=== PATIENT | female | born 1945 | race Caucasian/White ===

== ENCOUNTER 2019-04-25 16:50 | Emergency (ER) | payer OTHER ==
[~2019-04-25] VITALS: Ht 172.7 cm; Wt 115.7 kg
[2019-04-25 17:26] LABS: Basophils # (auto) 0 uL; Basophils % (auto) 0.4 % (0.0-2.0); Eosinophils # (auto) 0.1 uL; Eosinophils % (auto) 0.9 % (0.0-7.0); Hematocrit 39.4 % (36.0-46.0); Hemoglobin 13.3 g/dL (12.2-16.2); Lymphocytes # (auto) 4.9 uL; Mean Corpuscular Hemoglobin 32.9 pg (28.0-32.0); Mean Corpuscular Hgb Conc. 33.8 g/dL (32.0-36.0); Mean Corpuscular Volume 97.5 fL (80.0-100.0); Monocytes # (auto) 0.3 uL; Monocytes % (auto) 3.5 % (0.0-12.0); Neutrophils # (auto) 4.4 uL; Neutrophils % (auto) 45.2 % (37.0-80.0); Nucleated Red Blood Cells % 0.3 %; Platelet Count (auto) 134 10^3/uL (140-450); Red Blood Cells 4.04 10^6/uL (4.0-5.20); Red Cell Distribution Width 13.2 % (11.8-14.3); White Blood Cell 9.8 10^3/uL (4.4-10.8)
[2019-04-25 17:45] LABS: Alanine Aminotransferase 20 U/L (13-56); Albumin 3.8 g/dL (3.4-5.0); Anion Gap 7 (5-15); Blood Urea Nitrogen 24 mg/dL (7-18); Carbon Dioxide 24 mmol/L (21-32); Chloride 108 mmol/L (98-107); Glucose 193 mg/dL (74-106); Magnesium 2.1 mg/dL (1.6-2.6); Potassium 4.5 mmol/L (3.5-5.1); Sodium 139 mmol/L (136-145)
[2019-04-25 18:01] LABS: Calcium 9.9 mg/dL (8.5-10.1)
[2019-04-25 18:06] LABS: Alkaline Phosphatase 67 U/L (45-117); Aspartate Aminotransferase 13 U/L (15-37); BUN/Creatinine Ratio 22.9; GFR African American 66 mL/min; GFR Non-African American 55 mL/min
[2019-04-25 18:07] LABS: Bilirubin, Total 0.3 mg/dL (0.2-1.0); Total Protein 7.5 g/dL (6.4-8.2)
[2019-04-25] MEDS ORDERED: methylPREDNISolone SOD SUCC 125 MG/2 ML VL IV ONE (21:00)
[2019-04-25] MEDS ORDERED: IPRATROPIUM BROM 0.5 MG/2.5ML INH SOL HHN ONE (21:00)
[2019-04-25] MEDS ORDERED: ALBUTEROL SULF 2.5 MG/0.5ML(0.5%) NEB SOLN HHN ONE (21:00)
[2019-04-25 22:45] LABS: Urine Bacteria NONE SEEN /hpf (None Seen); Urine Blood Negative /uL (Negative); Urine Specific Gravity 1.015 (1.001-1.035); Urine WBC <1 /hpf (0 - 5)
[2019-04-26 00:15] VITALS: BP 143/73
== END 2019-04-26 00:20 | disposition short-term general hospital (02) ==
LOC: ER 16:50
DX: J44.9 Chronic obstructive pulmonary disease, unspecified (principal); E11.9 Type 2 diabetes mellitus without complications; E78.5 Hyperlipidemia, unspecified; I10 Essential (primary) hypertension; F17.210 Nicotine dependence, cigarettes, uncomplicated; Z98.51 Tubal ligation status
CPT/HCPCS: 36415; 71045; 80053; 81001; 82962; 83605; 83735; 83880; 84484; 85025; 87040; 93005; 94640; 94761; 96374; 99285; J2930; J7611; J7644; 94644

== ENCOUNTER 2021-10-21 22:21 | Emergency (ER) | payer OTHER ==
[~2021-10-21] VITALS: Ht 172.7 cm; Wt 117.9 kg
[2021-10-21 22:23] VITALS: BP 129/56
[2021-10-22] MEDS ORDERED: LIDOCAINE HCL 2% TOP JELLY 5ML TOP ONE (03:15)
[2021-10-22] MEDS ORDERED: LIDOCAINE 1% HCL (LOCAL ANESTH.) INJ 20ML MDV IJ ONE (03:15)
[2021-10-22] MEDS ORDERED: CEPH-509 PO (03:16)
[2021-10-22] MEDS ORDERED: BAC09TP TOP (03:16)
[2021-10-22] MEDS ORDERED: cefTRIAXone 1GM/50ML D5W 50 ML IV ONE (03:45)
[2021-10-22] MEDS ORDERED: InsuLIN REG 1unit/0.01ml Soln (100units/ml) IV ONE (03:50)
== END 2021-10-22 04:17 | disposition home or self-care (01) ==
LOC: ER 22:24
DX: S81.812A Laceration without foreign body, left lower leg, initial encounter (principal); I10 Essential (primary) hypertension; E11.9 Type 2 diabetes mellitus without complications; J44.9 Chronic obstructive pulmonary disease, unspecified; E78.5 Hyperlipidemia, unspecified; W22.8XXA Striking against or struck by other objects, initial encounter; Y93.89 Activity, other specified; Y92.89 Other specified places as the place of occurrence of the external cause; Y99.8 Other external cause status
CPT/HCPCS: 82962; 96365; 96375; 99284; J0696; J1815; J2001

== ENCOUNTER 2021-10-24 05:52 | Emergency (ER) | payer OTHER ==
[~2021-10-24] VITALS: Ht 172.7 cm; Wt 117.9 kg
[~2021-10-24 05:52] MED LIST: BAC09TP TOP; CEPH-509 PO
[2021-10-24 07:19] VITALS: BP 123/56
== END 2021-10-24 07:41 | disposition home or self-care (01) ==
LOC: ER 05:52
DX: S81.812D Laceration without foreign body, left lower leg, subsequent encounter (principal); X58.XXXD Exposure to other specified factors, subsequent encounter